=== PATIENT | female | born 1990 | race Caucasian/White ===

== ENCOUNTER 2020-10-23 09:34 | Inpatient (IN) | payer MEDICAID ==
[2020-10-23] VITALS (7 sets, daily range): BP systolic 111–144; BP diastolic 65–90
[~2020-10-23] VITALS: Ht 170.2 cm; Wt 124.0 kg
[2020-10-23] MEDS ORDERED: LACTATED RINGERS 1,000 ML IV ONE (19:18)
[2020-10-23] MEDS ORDERED: D5 LR IV SOLUTION 1,000 ML IV ONE (19:18)
[2020-10-23] MEDS ORDERED: MINERAL OIL CONCENTRATE 99.9% 15 ML UDC TOP PRN (19:30)
[2020-10-23] MEDS ORDERED: TERBUTALINE INJ 1 MG/ML (BRETHINE) AMP SC PRN (19:30)
[2020-10-23] MEDS ORDERED: LACTATED RINGERS 1,000 ML IV SCH (19:30)
[2020-10-23] MEDS ORDERED: PHYTONADIONE (VIT. K) NEONATAL 1 MG/0.5 ML AMP ONE (19:32)
[2020-10-23] MEDS ORDERED: ERYTHROMYCIN OPHTH OINT 1 GM (SINGLE USE) TUBE ONE (19:32)
[2020-10-23 20:14] LABS: BILIRUBIN,URINE NEGATIVE (NEGATIVE); CLARITY,URINE CLEAR; COLOR,URINE DARK YELLOW; GLUCOSE, URINE (UA) 2+ (NEGATIVE); KETONES,URINE TRACE (NEGATIVE); LEUKOCYTE ESTERASE ,URINE NEGATIVE (NEGATIVE); NITRITE,URINE NEGATIVE (NEGATIVE); PROTEIN,URINE 1+ (NEGATIVE)
[2020-10-23 20:18] LABS: BASOPHILS % (AUTO) 0 % (0-10); EOSINOPHILS # (AUTO) 0.1 10^3/uL (0.0-0.3); EOSINOPHILS % (AUTO) 1 % (0-10); HEMATOCRIT 39 % (35-52); HEMOGLOBIN 12.8 g/dL (11.5-16.0); LYMPHOCYTES # (AUTO) 2.8 10^3/uL (1.0-4.0); LYMPHOCYTES % (AUTO) 23 % (12-44); MEAN CORPUSCULAR HEMOGLOBIN 30 pg (25-34); MEAN CORPUSCULAR HGB CONC 33 g/dL (32-36); MEAN CORPUSCULAR VOLUME 89 fL (80-99); MEAN PLATELET VOLUME 10.8 fL (9.0-12.2); MONOCYTES # (AUTO) 0.9 10^3/uL (0.0-1.0); MONOCYTES % (AUTO) 7 % (0-12); NEUTROPHILS # (AUTO) 8.5 10^3/uL (1.8-7.8); NEUTROPHILS % (AUTO) 69 % (42-75); PLATELET COUNT 394 10^3/uL (130-400); WHITE BLOOD COUNT 12.4 10^3/uL (4.3-11.0)
[2020-10-23 20:26] LABS: CALCIUM OXALATE CRYSTALS,UR MODERATE /LPF
[2020-10-23 20:27] LABS: WBC,URINE 0-2 /HPF
[2020-10-23 20:28] LABS: AMORPHOUS SEDIMENT,UR RARE AMOR URATES /LPF; BACTERIA,URINE TRACE /HPF; SQUAMOUS EPITHELIAL CELL,UR 0-2 /HPF
[2020-10-23] MEDS: D5 LR IV SOLUTION 1,000 ML IV SCH (20:36)
[2020-10-23] MEDS ORDERED: PREN-142 PO (20:45)
[2020-10-23] MEDS: CATHETER FLUSH 10 ML SYR IV SCH (21:02)
[2020-10-24] VITALS (80 sets, daily range): BP systolic 92–147; BP diastolic 54–93
[2020-10-24] MEDS: D5 LR IV SOLUTION 1,000 ML IV SCH ×3 (04:32→20:14)
[2020-10-24] MEDS ORDERED: fentaNYL 2 mcg/ml BUPIVA 0.125 100 ML ONE (10:34)
[2020-10-24] MEDS ORDERED: LACTATED RINGERS 1,000 ML IV SCH ×2 (10:45→12:00)
[2020-10-24] MEDS ORDERED: fentaNYL INJ 100 MCG/2 ML AMP ONE (11:02)
[2020-10-24] MEDS ORDERED: LIDOCAINE PF 2% 5 ML (XYLOCAINE) VIAL ONE (12:00)
[2020-10-24] MEDS ORDERED: NALOXONE 0.4 MG/ML 1 ML (NARCAN) VIAL IV PRN (12:00)
[2020-10-24] MEDS ORDERED: diphenhydrAMINE 50 MG/ML INJ (BENADRYL) IV PRN (12:00)
[2020-10-24] MEDS ORDERED: EPIDURAL (fentaNYL 2 MCG/ML BUPIVA 0.125%)100 ML BAG EPI PRN (12:00)
[2020-10-24] MEDS ORDERED: BUPIVACAINE 0.25% 30 ML (SENSORCAINE) VIAL ONE (12:00)
[2020-10-24] MEDS: fentaNYL 2 mcg/ml BUPIVA 0.125 100 ML EPI PRN ×2 (12:03→20:19)
[2020-10-24] MEDS: ONDANSETRON 4 MG/2 ML (SDV) Z0FRAN IV PRN ×3 (12:10→21:18)
[2020-10-24] MEDS ORDERED: OXYTOCIN PRE-MIX DRIP 500 ML IV SCH (13:00)
[2020-10-24] MEDS: CATHETER FLUSH 10 ML SYR IV SCH ×2 (20:01→21:18)
[2020-10-25] VITALS (66 sets, daily range): BP systolic 94–152; BP diastolic 51–85
[2020-10-25] MEDS: D5 LR IV SOLUTION 1,000 ML IV SCH ×2 (04:10→12:06)
[2020-10-25] MEDS: fentaNYL 2 mcg/ml BUPIVA 0.125 100 ML EPI PRN ×2 (04:12→11:56)
--- NOTE | 2020-10-25 06:33 | History & Physical-OB ---
OB - Chief Complaint & HPI Date/Time Date of Admission: Date of Admission: Oct 23, 2020 at 18:56 Date seen by a Provider: Oct 24, 2020 Time Seen by a Provider: 17:30 Chief Complaint/History OB-Reason for Admission/Chief: Induction of Labor Hx : 1 Expected Date of Delivery: Oct 20, 2020 Gestational Age in Weeks: 40 Gestational Age in Days: 3 Indication for induction: post dates History of Labs B+, Ab neg Rub Imm HIV/HepB/C/RPR NR Normal 1 hr GTT GBS neg Allergies and Home Medications Allergies Coded Allergies: No Known Drug Allergies (Unverified , 10/23/20) Home Medications Vit No.124/Iron/FA 1 Each Tablet, 1 EACH PO DAILY, (Reported) Last Action: New Order Patient Home Medication List Home Medication List Reviewed: Yes OB - History Hx of Present Care: Yes Ultrasounds: Normal mid trimester US Obstetrical Complications: None Medical Complications: Other (Obesity) Obstetrical History Hx : 1 Patient Past Medical History NA Social History/Family History Alcohol Use: Denies Use Smoking Cessation: Never smoker Immunizations Tetanus Booster (TDap): Less than 5yrs Rubella: immune RPR/VDRL: Negative GBS Status: Negative HBsAG: Negative OB - Admission Exam Physical Exam Vitals: Vital Signs 10/25/20 10/25/20 10/25/20 03:15 05:15 06:00 Temp 36.3 Pulse 74 Resp 18 B/P (MAP) 138/77 (97) Pulse Ox 96 O2 Delivery Room Air HEENT: NCAT Heart: Rhythm Normal Lungs: Clear Abdomen: Gravid Cervical Dilatation: 5cm Effacement: 75% Station: -2 Membranes: Ruptured Amniotic Fluid: Clear Heart Rate: 140's Accelerations: Accelerations Present Decelerations: No Decelerations Short Term Variability: Present Care Home Variability: Average (6-25) Contractions on Admission: < 5 Minutes Apart Intensity: Firm Rene Scoring Tool (Modified) Dilation (cm): 1-2cm (1) Effacement (%): 51-79% (2) Descent/Station: -2 (1) Cervix Consistency: Medium(1) Cervix Position: Middle/Mid-Position (1) Rene Score: 6 OB - Assessment/Plan/Diagnosis Assessment Assessment: induction of labor Admission Dx Third Trimester 40 week gestation Obesity in Admission Status: Inpatient Order (span 2 midnights) Reason for Inpatient Admission: Labor Plan Plan: Induction Other Plan 30 yo G1 @ 40.3 here for IOL for post dates Plan - Cytotec given starting yesterday at 1900 - AROM this AM and started on Pitocin - Epidural ok when patient desires - GBS Neg YVES CASTAÑEDA MD Oct 25, 2020 06:33
[2020-10-25] MEDS: ONDANSETRON 4 MG/2 ML (SDV) Z0FRAN IV PRN (11:33)
[2020-10-25] MEDS ORDERED: OXYTOCIN PRE-MIX DRIP 1,000 ML IV ONE (13:28)
[2020-10-25] MEDS ORDERED: FAMOTIDINE 20MG/2ML IV (PEPCID) ONE (13:44)
[2020-10-25] MEDS ORDERED: CITRIC ACID/SOB CIT (BICITRA) 30 ML UDC ONE (13:44)
[2020-10-25] MEDS ORDERED: METOCLOPRAMIDE INJ 10 MG/2 ML (REGLAN) ONE (13:44)
[2020-10-25] MEDS ORDERED: CITRIC ACID/SOB CIT (BICITRA) 30 ML UDC PO ONE (14:00)
[2020-10-25] MEDS ORDERED: FAMOTIDINE 20MG/2ML IV (PEPCID) IV ONE (14:00)
[2020-10-25] MEDS ORDERED: LACTATED RINGERS 1,000 ML IV SCH ×2 (14:00)
[2020-10-25] MEDS ORDERED: METOCLOPRAMIDE INJ 10 MG/2 ML (REGLAN) IV ONE (14:00)
[2020-10-25] MEDS ORDERED: LACTATED RINGERS 1,000 ML IV PRN (14:00)
[2020-10-25] MEDS ORDERED: fentaNYL INJ 100 MCG/2 ML AMP ONE (14:19)
[2020-10-25] MEDS ORDERED: IBUP-1780 PO (14:20)
[2020-10-25] MEDS ORDERED: DOCU-143 PO (14:20)
[2020-10-25] MEDS ORDERED: OXYC1TAB12 PO (14:20)
--- NOTE | 2020-10-25 14:21 | Discharge Inst-Surgical ---
Discharge Inst-Surgical Depart Medication/Instructions New, Converted or Re-Newed RX: RX on Chart Consults/Follow Up Patient Instructions: As directed Orders & Referrals Follow Up Appt: RTC 1 week for incision check With Dr. Cannon Call to make follow up appt. for patient With Dr. Manzanares in 6 weeks For exam. Wound Care: Remove cindy, apply benzoin and steri strips. Activity Per routine post instructions. Please call in RX to patient pharmacy. Diet as tolerated Patient may shower or tub bathe as desired. Continue home meds Activity Activity as Tolerated: No Diet Discharge Diet: No Restrictions HERBIE CANNON MD Oct 25, 2020 14:21
[2020-10-25] MEDS ORDERED: ceFAZolin 2 GM IV Premixed 50 ML ONE (14:27)
[2020-10-25] MEDS ORDERED: metroNIDAZOLE 500MG/100ML IVPB 100 ML ONE (14:27)
[2020-10-25] MEDS ORDERED: MEASLES,MUMPS,RUBELLA 1 EA INJ SC ONE (14:30)
[2020-10-25] MEDS ORDERED: fentaNYL INJ 100 MCG/2 ML AMP IVP PRN (14:30)
[2020-10-25] MEDS ORDERED: TETANUS,DIPTH,PERTUSS P/F (BOOSTRIX) 0.5 ML VIAL IM ONE (14:30)
[2020-10-25] MEDS ORDERED: D5 LR IV SOLUTION 1,000 ML IV SCH (14:30)
[2020-10-25] MEDS ORDERED: ONDANSETRON 4 MG/2 ML (SDV) Z0FRAN IVP PRN (14:30)
[2020-10-25] MEDS ORDERED: PHENYLEPHRINE 100 MCG/ML 10 ML (ANESTHESIA) SYR ONE (14:36)
[2020-10-25] MEDS ORDERED: KETAMINE/NaCl 50 MG/5 ML SYRINGE (ED ONLY) ONE (14:36)
[2020-10-25] MEDS ORDERED: LIDOCAINE PF 2% 5 ML (XYLOCAINE) VIAL ONE ×2 (15:14)
[2020-10-25] MEDS ORDERED: BUPIVACAINE 0.5% 30 ML (SENSORCAINE) VIAL ONE (15:15)
[2020-10-25] MEDS: OXYTOCIN PRE-MIX DRIP 500 ML IV SCH ×2 (16:36→21:00)
[2020-10-25] MEDS: oxyCODONE/APAP 10/325MG (PERCOCET 10) TABLET PO PRN (18:42)
--- NOTE | 2020-10-25 19:47 | OPERATIVE REPORT ---
DATE OF SERVICE: 10/25/2020 PREOPERATIVE DIAGNOSES: Term in labor with failure to progress and failure to descend. POSTOPERATIVE DIAGNOSES: Term in labor with failure to progress and failure to descend with CPD/OP/macrosomia. OPERATIVE PROCEDURE: Primary low transverse delivery of a viable male with Apgars that are pending, weight of 10 pounds 10 ounces. Cord blood pH of 7.25. OPERATIVE DESCRIPTION: With the patient in the supine position under satisfactory epidural analgesia, the patient was prepped and draped in the usual fashion for abdominal surgery. Avila catheter was placed in the urinary bladder and left to dependent drainage. A Pfannenstiel incision was made through the skin with scalpel, the patient's abdomen was entered in the usual manner. Bladder retractor placed in position, clean scalpel used to make a 4 cm hysterotomy incision transversely across the lower uterine segment that was extended bluntly as well. The presenting part was descending into the pelvis, but not terribly engaged. It was elevated up out of the pelvis easily almost elevated spontaneously. Fundal pressure did very little to allow descent of the presenting part to the incision. Camp forceps were applied to facilitate delivery; however, that was not forthcoming. This did not seem quite right as the head would not come down to the incision with usual traction via the camp forceps. The forceps were removed and on palpation, the presenting part had retracted well up into the uterus. It was obvious, there was a nuchal cord or more. I palpated the upper abdomen, located the feet did an internal podalic version and a breech extraction. The head just barely cleared the incision to come out of the uterus with the double/triple nuchal cord that was now easily released. The was dried, stimulated as the umbilical cord was clamped and cut and the passed to the pediatric nurse in attendance for delivery. Cord bloods at this time were obtained. Placenta delivered spontaneously Driscoll. It was normal with a 3-vessel cord. The uterus was exteriorized and interior wiped clean with a wet laparotomy sponge. Uterine incision was then closed with a running locked suture of 2-0 Vicryl. Hemostasis was satisfactory; however, the uterus was quite boggy and atonic. A modified B-Cotto suture was placed using 2-0 chromic sutures in the usual manner. This compressed uterus nicely. The uterus was now returned to abdominal cavity. All blood clot and debris was removed from the abdominal cavity. Sponge and needle counts correct, hemostasis assured. The anterior parietal peritoneum was closed with running suture of 2-0 Vicryl. The rectus muscles were closed with that suture as well. The rectus fascia was closed with 2-0 Vicryl, subcutaneous tissue was closed with 2-0 Vicryl and the skin was stapled. Sponge and needle counts were correct on completion of the procedure. Estimated blood loss was around 800 mL. The patient tolerated the procedure well and was transferred to the recovery room in stable condition. The had been taken stable to the full term nursery under the care of the director semiconductor. Job ID: [id number] DocumentID: [id number] Dictated Date: 10/25/2020 15:23:52 Photographic Press Screwmaker Date: 10/25/2020 19:46:50 Dictated By: HERBIE HO MD MTDD
[2020-10-25] MEDS ORDERED: DOCUSATE SODIUM 100 MG (COLACE) CAP PO SCH (21:00)
[2020-10-25] MEDS: KETOROLAC 30 MG/ML VIAL IVP SCH (21:04)
[2020-10-25] MEDS: DOCUSATE SODIUM 100 MG (COLACE) CAP PO SCH (21:05)
[2020-10-26] MEDS: KETOROLAC 30 MG/ML VIAL IVP SCH ×2 (02:49→08:30)
[2020-10-26 04:25] VITALS: BP 103/52
[2020-10-26] MEDS: oxyCODONE/APAP 10/325MG (PERCOCET 10) TABLET PO PRN ×3 (06:34→22:10)
[2020-10-26 07:25] VITALS: BP 95/52
--- NOTE | 2020-10-26 08:28 | Anesthesia-Regional Post-Op ---
Regional Patient Condition Mental Status: Alert, Oriented x3 Circulation: Same as Pre-Op Headache: Absent Sensation: Full Recovery Motor Block: Absent Post Op Complications Complications None Follow Up Care/Instructions Patient Instructions None needed. Anesthesia/Patient Condition Patient is doing well, no complaints, stable vital signs, no apparent adverse anesthesia problems. No complications reported per nursing. JESUS ADAMS CRNA Oct 26, 2020 08:28
--- NOTE | 2020-10-26 08:52 | Progress Note ---
Standard Progress Note Progress Notes/Assess & Plan Date Seen by a Provider: Oct 26, 2020 Time Seen by a Provider: 08:50 Progress/Assessment & Plan This patient is without complaint. She is ambulating, voiding, tolerating oral intake well and has good pain control. Patient denies headache, denies shortness of breath, denies nausea vomiting, and denies chest pain. Vital signs are stable. Patient is afebrile. The abdomen is benign. The surgical incision is clean dry and intact. Extremities show no clubbing or cyanosis. There is no Homans' sign. Assessment and plan primary delivery doing well. Patient will have routine convalescent care. We did have a discussion of the events of the delivery. Particularly the difficulty with extracting the baby from the uterus with the short multiple nuchal cord. I described to the patient the internal podalic version and breech extraction HERBIE HO MD Oct 26, 2020 08:52
[2020-10-26] MEDS ORDERED: IBUPROFEN 800 MG (MOTRIN) TAB PO ONE ×2 (09:17→15:03)
[2020-10-26] MEDS: DOCUSATE SODIUM 100 MG (COLACE) CAP PO SCH ×2 (09:27→22:09)
[2020-10-26] MEDS: IBUPROFEN 800 MG (MOTRIN) TAB PO SCH ×3 (09:27→22:10)
[2020-10-26 12:25] VITALS: BP 114/53
[2020-10-26] MEDS ORDERED: IBUPROFEN 800 MG (MOTRIN) TAB PO SCH (14:00)
[2020-10-26 16:15] VITALS: BP 115/58
[2020-10-26 22:10] VITALS: BP 114/58
[2020-10-27 03:19] VITALS: BP 101/51
[2020-10-27] MEDS: oxyCODONE/APAP 10/325MG (PERCOCET 10) TABLET PO PRN ×2 (03:20→13:19)
[2020-10-27] MEDS: IBUPROFEN 800 MG (MOTRIN) TAB PO SCH ×2 (03:20→10:36)
--- NOTE | 2020-10-27 08:05 | Postpartum Progress Note ---
Note Note Day # 2 Subjective: Patient is without complaints. Ambulating, voiding. Tolerating a regular diet without nausea or vomiting. Normal lochia. Pain is well controlled with oral pain medications. Objective: Physical Exam: General - Alert and oriented, no apparent distress Abdomen - Soft, appropriately tender to palpation, non-distended, fundus firm at umbilicus Extremities - no edema, negative Angelito's bilaterally Incision- c/d/i cindy in place Assessment: POD 2 PLTCS Acute blood loss anemia Plan: Routine care. Encourage breast feeding. Encourage ambulation. Ferrous sulfate supplementation. Plan for discharge today Vitals - Labs Vital Signs - I&O Vital Signs Date Time Temp Pulse Resp B/P (MAP) Pulse Ox O2 Delivery O2 Flow Rate FiO2 10/27/20 03:19 36.8 101 16 101/51 (68) 94 Room Air 10/26/20 22:10 36.8 129 16 114/58 (76) 96 Room Air 10/26/20 16:15 36.7 113 16 115/58 (77) 96 Room Air 10/26/20 12:25 36.3 109 16 114/53 (73) 95 Room Air JESSICA SMITH DO Oct 27, 2020 08:05
[2020-10-27 08:15] VITALS: BP 98/52
[2020-10-27] MEDS: DOCUSATE SODIUM 100 MG (COLACE) CAP PO SCH (10:37)
[2020-10-27 13:30] VITALS: BP 119/55
== END 2020-10-27 17:08 | disposition home or self-care (01) | DRG 787 ==
LOC: LDRP 18:56
PROVIDERS: ADMIT Family Medicine; ATTEND Family Medicine
PROC: 10D00Z1 Extraction of Products of Conception, Low, Open Approach (ICD-10-PCS; principal; 2020-10-25 14:35)
DX: O48.0 Post-term pregnancy (principal); D62 Acute posthemorrhagic anemia; Z37.0 Single live birth; Z3A.40 40 weeks gestation of pregnancy; O99.214 Obesity complicating childbirth; E66.9 Obesity, unspecified; O69.81X0 Labor and delivery complicated by cord around neck, without compression, not applicable or unspecified; O90.81 Anemia of the puerperium; O62.0 Primary inadequate contractions; O33.9 Maternal care for disproportion, unspecified; O36.63X0 Maternal care for excessive fetal growth, third trimester, not applicable or unspecified
CPT/HCPCS: 36415; 81000; 85025; 86780; 86850; 86900; 86901

== ENCOUNTER 2020-12-01 12:17 | Day surgery (SDC) | payer MEDICAID ==
[2020-12-01] VITALS (9 sets, daily range): BP systolic 108–133; BP diastolic 59–85
[~2020-12-01] VITALS: Ht 176.8 cm; Wt 106.6 kg
[~2020-12-01 12:17] MED LIST: DOCU-143 PO; IBUP-1780 PO; OXYC1TAB12 PO; PREN-142 PO
[2020-12-01] MEDS ORDERED: fentaNYL INJ 100 MCG/2 ML AMP IVP ONE ×2 (12:30→16:30)
[2020-12-01] MEDS ORDERED: LACTATED RINGERS 1,000 ML IV PRN (12:30)
[2020-12-01] MEDS ORDERED: PIPERACILLIN/TAZO 4.5 GM/NS 100 ML IV ONE ×4 (13:00→13:15)
[2020-12-01 13:24] LABS: BASOPHILS % (AUTO) 0 % (0-10); EOSINOPHILS # (AUTO) 0.1 10^3/uL (0.0-0.3); EOSINOPHILS % (AUTO) 1 % (0-10); HEMATOCRIT 31 % (35-52); HEMOGLOBIN 9.5 g/dL (11.5-16.0); LYMPHOCYTES # (AUTO) 1.9 10^3/uL (1.0-4.0); LYMPHOCYTES % (AUTO) 21 % (12-44); MEAN CORPUSCULAR HEMOGLOBIN 27 pg (25-34); MEAN CORPUSCULAR HGB CONC 31 g/dL (32-36); MEAN CORPUSCULAR VOLUME 87 fL (80-99); MEAN PLATELET VOLUME 8.7 fL (9.0-12.2); MONOCYTES # (AUTO) 0.4 10^3/uL (0.0-1.0); MONOCYTES % (AUTO) 5 % (0-12); NEUTROPHILS # (AUTO) 6.6 10^3/uL (1.8-7.8); NEUTROPHILS % (AUTO) 72 % (42-75); PLATELET COUNT 596 10^3/uL (130-400); WHITE BLOOD COUNT 9.1 10^3/uL (4.3-11.0)
[2020-12-01] MEDS ORDERED: proPOfol 200 MG/20 ML (DIPRIVAN) VIAL IV ONE (14:53)
[2020-12-01] MEDS ORDERED: SUCCINYLCHOLINE INJ 100 MG/5 ML SYR/VIAL ONE (14:53)
[2020-12-01] MEDS ORDERED: fentaNYL INJ 100 MCG/2 ML AMP ONE ×3 (14:53→16:58)
[2020-12-01] MEDS ORDERED: LIDOCAINE PF 2% 5 ML (XYLOCAINE) VIAL ONE (14:53)
[2020-12-01] MEDS ORDERED: ONDANSETRON 4 MG/2 ML (SDV) Z0FRAN ONE (14:53)
[2020-12-01] MEDS ORDERED: MIDAZOLAM 2 MG/2 ML (VERSED) VIAL ONE (14:54)
[2020-12-01] MEDS ORDERED: SEVOFLURANE (ULTANE) 15 ML INHAL SOLN ONE ×6 (14:55→17:40)
[2020-12-01] MEDS ORDERED: PROMETHAZINE INJ 25 MG/ML (PHENERGAN) AMP ONE (16:18)
[2020-12-01] MEDS ORDERED: MEPERIDINE (DEMEROL) INJ 50 MG/ML ONE (16:18)
[2020-12-01] MEDS ORDERED: morphine INJ 10 MG/ML 1ML (SYR OR VIAL) ONE (16:18)
--- NOTE | 2020-12-01 16:22 | Progress Note-Pre Operative ---
Pre-Operative Progress Note H&P Reviewed The H&P was reviewed, patient examined and no changes noted. Date Seen by Provider: Dec 01, 2020 Time Seen by Provider: 16:22 Date H&P Reviewed: Dec 01, 2020 Time H&P Reviewed: 16:22 Pre-Operative Diagnosis: Abdominal wall cellulitis HERBIE HO MD Dec 01, 2020 16:22
--- NOTE | 2020-12-01 16:23 | Progress Note-Post Operative ---
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
[2020-12-01] MEDS ORDERED: IBUP-1780 PO (16:28)
[2020-12-01] MEDS ORDERED: DOCU-143 PO (16:28)
[2020-12-01] MEDS ORDERED: OXYC1TAB12 PO (16:28)
--- NOTE | 2020-12-01 16:29 | Discharge Inst-Surgical ---
Discharge Inst-Surgical Depart Medication/Instructions New, Converted or Re-Newed RX: RX on Chart Consults/Follow Up Patient Instructions: As directed Orders & Referrals Follow Up Appt: Return to clinic next Friday, December 08, 2020 at 9:30 AM for incision check Activity: Rest for 24 hours, than as tolerated. Wound Care: May remove Band-Aid tomorrow. Replace as desired. Keep incisions clean and dry. Wash daily with soap and water. Please call in RX to patient pharmacy. Diet: As tolerated-Clear Liquids only if nauseated. Tomorrow, may shower or tub bathe as desired. No driving for 24 hours, no alcoholic beverages for 24 hours, and nothing per vagina (no tampons, douching, or intercoarse) for 2 weeks. Patient to return to the clinic as soon as possible for: Temperature greater than 101F, Severe Pain, Foul discharge from incision or vagina, Excessive Bleeding (more than a period). Activity Activity as Tolerated: No Diet Discharge Diet: No Restrictions HERBIE HO MD Dec 01, 2020 16:29
[2020-12-01] MEDS ORDERED: HYDROmorphone 2 MG/ML VIAL (DILAUDID) IV ONE (16:30)
[2020-12-01] MEDS ORDERED: D5 LR IV SOLUTION 1,000 ML IV SCH (16:30)
[2020-12-01] MEDS ORDERED: oxyCODONE/APAP 10/325MG (PERCOCET 10) TABLET PO PRN (16:30)
[2020-12-01] MEDS ORDERED: morphine INJ 10 MG/ML 1ML (SYR OR VIAL) IVP ONE (16:30)
[2020-12-01] MEDS ORDERED: PROMETHAZINE INJ 25 MG/ML (PHENERGAN) AMP IVP ONE (16:30)
[2020-12-01] MEDS ORDERED: fentaNYL INJ 100 MCG/2 ML AMP IVP PRN (16:30)
[2020-12-01] MEDS ORDERED: ONDANSETRON 4 MG/2 ML (SDV) Z0FRAN IVP PRN ×2 (16:30)
[2020-12-01] MEDS ORDERED: MEPERIDINE (DEMEROL) INJ 50 MG/ML IVP ONE (16:30)
--- NOTE | 2020-12-01 17:52 | Discharge Inst-Surgical ---
Discharge Inst-Surgical Consults/Follow Up Patient Instructions: Patient had previously been prescribed Keflex 500 mg 4 times daily she is to continue that antibiotic until follow-up in clinic HERBIE HO MD Dec 01, 2020 17:52
[2020-12-01] MEDS ORDERED: CEPH500T PO (17:54)
[2020-12-01] MEDS ORDERED: IBUPROFEN 800 MG (MOTRIN) TAB PO SCH (18:00)
[2020-12-01] MEDS ORDERED: KETOROLAC 30 MG/ML VIAL ONE (18:08)
--- NOTE | 2020-12-01 18:11 | Anesthesia-General Post-Op ---
General Patient Condition Mental Status/LOC: Same as Preop Cardiovascular: Satisfactory Nausea/Vomiting: Absent Respiratory: Satisfactory Pain: Controlled Complications: Absent Post Op Complications Complications None Follow Up Care/Instructions Patient Instructions None needed. Anesthesia/Patient Condition Patient Condition Patient is doing well, no complaints, stable vital signs, no apparent adverse anesthesia problems. No complications reported per nursing. ONIEL SHULTZ CRNA Dec 01, 2020 18:11
[2020-12-01] MEDS: KETOROLAC 30 MG/ML VIAL IVP SCH ×2 (18:17→23:59)
[2020-12-01] MEDS ORDERED: D5 LR IV SOLUTION 1,000 ML IV ONE (19:15)
[2020-12-01] MEDS ORDERED: DOCUSATE SODIUM 100 MG (COLACE) CAP PO SCH ×2 (21:00)
[2020-12-01] MEDS: PIPERACILLIN/TAZOBACTAM (BULK) 4.5 GM in NS (IVPB) 100 ML IV SCH (21:32)
--- NOTE | 2020-12-02 00:20 | OPERATIVE REPORT ---
DATE OF SERVICE: 12/01/2020 PREOPERATIVE DIAGNOSIS: Abdominal wall cellulitis. POSTOPERATIVE DIAGNOSES: Sterile necrosis of the abdominal wall. OPERATIVE DESCRIPTION: With the patient in the supine position under satisfactory general anesthesia, she was prepped and draped in the usual fashion for abdominal surgery. The patient had had a Pfannenstiel incision performed 5 weeks ago for her . The incision was well healed; however, it was edematous and discolored almost cyanotic appearing more so on the left than the right. It was swollen more on the left than on the right. The wound was opened bluntly. The subcutaneous tissue appeared necrotic. There was no purulent drainage. There was no abscess fluid or pocket. There was no odor to the tissue. The wound was opened to its full extent. The subcutaneous tissue was debrided back to healthy normal appearing viable tissue, which required removal of a couple of centimeters of tissue from both the superior and inferior wound edge, more tissue in the left extent of the wound than on the right. The dissection was carried down to the fascia, which did not seem to be involved. With the nonviable necrotic-appearing tissue removed, the skin edges themselves were resected back about 1 cm on both the superior and inferior margin and that tissue was sent to pathology for permanent section. The debridement tissue was sent to pathology for permanent section as well. The wound was copiously irrigated, treated sparingly with electrocautery for hemostasis, then a Kevon-Espinal drain was placed with exit superior to the round and several centimeters lateral in the right lower quadrant. A Kevon-Espinal bulb was applied. The wound was closed with reapproximation with PDS sutures loosely placed with 5 sutures along the extent of the incision and then retention sutures placed in three locations across the wound as well. An ABD pad was placed over the wound and light dressing was applied. Sponge and needle counts were correct on completion of the procedure. Blood loss was around 200 mL. The patient tolerated the procedure well and was uneventfully awakened from her general anesthesia and transferred to recovery room in stable condition with plans for 23-hour observation. Job ID: [id number] DocumentID: [id number] Dictated Date: 12/01/2020 17:49:35 Cutter And Presser Date: 12/02/2020 00:20:26 Dictated By: HERBIE HO MD
[2020-12-02] MEDS: PIPERACILLIN/TAZOBACTAM (BULK) 4.5 GM in NS (IVPB) 100 ML IV SCH (05:17)
[2020-12-02] MEDS: KETOROLAC 30 MG/ML VIAL IVP SCH (05:17)
[2020-12-02 05:20] VITALS: BP 109/55
[2020-12-02 07:55] VITALS: BP 108/55
[2020-12-02] MEDS ORDERED: OXYC1TAB12 PO (10:24)
[2020-12-02 11:55] LABS: BASOPHILS % (AUTO) 0 % (0-10); EOSINOPHILS # (AUTO) 0.2 10^3/uL (0.0-0.3); EOSINOPHILS % (AUTO) 2 % (0-10); HEMATOCRIT 30 % (35-52); HEMOGLOBIN 9.3 g/dL (11.5-16.0); LYMPHOCYTES % (AUTO) 22 % (12-44); MEAN CORPUSCULAR HEMOGLOBIN 27 pg (25-34); MEAN CORPUSCULAR HGB CONC 31 g/dL (32-36); MEAN CORPUSCULAR VOLUME 87 fL (80-99); MEAN PLATELET VOLUME 9.1 fL (9.0-12.2); MONOCYTES # (AUTO) 0.2 10^3/uL (0.0-1.0); MONOCYTES % (AUTO) 3 % (0-12); NEUTROPHILS # (AUTO) 6.6 10^3/uL (1.8-7.8); NEUTROPHILS % (AUTO) 73 % (42-75); PLATELET COUNT 629 10^3/uL (130-400); WHITE BLOOD COUNT 9.1 10^3/uL (4.3-11.0)
== END 2020-12-02 14:05 | disposition home or self-care (01) ==
LOC: SDC 12:17 → WS 12-02 07:41 → SDC 12-02 14:05
PROVIDERS: ATTEND Obstetrics & Gynecology
DX: I96 Gangrene, not elsewhere classified (principal); L03.311 Cellulitis of abdominal wall; K21.9 Gastro-esophageal reflux disease without esophagitis; E66.01 Morbid (severe) obesity due to excess calories; Z68.34 Body mass index [BMI] 34.0-34.9, adult; Z79.891 Long term (current) use of opiate analgesic; Z79.899 Other long term (current) drug therapy
CPT/HCPCS: 36415; 84703; 85025; 87070; 87075; 87077; 87081; 87101; 87186; 87205; 88304

== ENCOUNTER 2021-07-01 14:35 | Emergency (ER) | payer MEDICAID ==
[~2021-07-01] VITALS: Ht 170 cm; Wt 108.0 kg
[~2021-07-01 14:35] MED LIST changes: +CEPH500T PO
--- OUTSIDE RECORDS SUMMARY | 2021-07-01 14:38 | XMS REPORT | Clinical Summary ---
Demographics Home Phone Preferred Language Arabic Marital Status Single Yarsani Affiliation [id number] Race White Ethnic Group Not or Author Author [facility] ity Organization [facility] ity Address Unknown Phone Unavailable Care Team Providers Care Implementation Engineer Name Role Phone PP Unavailable Allergies Not on File Medications Not on file Active Problems Not on file Social History Date Tobacco Use Types Packs/Day Years Used Current Some Day Smoker Comments Alcohol Use Standard Drinks/Week Alcoholic Drinks/day: sometimes on weeke nds Yes 0 (1 standard drink = 0.6 o z pure alcohol) Sex Assigned at Date Recorded Not on file Plan of Treatment Not on file Results Not on filefrom Last 3 Months
--- OUTSIDE RECORDS SUMMARY | 2021-07-01 14:38 | XMS REPORT | Clinical Summary ---
Author Author [facility] Health Organization [facility] Health Address Unknown Phone Unavailable Care Team Providers Care Architecture Internship Name Role Phone None, Pcp MD PCP Unavailable Source Comments [facility] (Labor and Delivery) documents do not appear in the Encounter [facility] Allergies No known active allergies Medications * Please verify current medications with patient. End Date Status Medication Sig Dispensed Refills Start Date Active citalopram (CELEXA) 20 mg 0 tablet Active HYDROcodone-acetaminophen 1-2 by mouth 20 tablet 0 , 5-325 mg/tab, (NORCO) every 4-6 3 5-325 mg per tablet hours when necessary for pain Active diclofenac sodium Take 1 tablet 30 tablet 0 (VOLTAREN) 75 mg delayed by mouth two 3 release tablet times a day. Active Problems No known active problems Family History Relation Status Comments Brother Alive Father Alive Maternal Grandfather Alive Maternal Grandmother Alive Mother Alive Paternal Grandfather Paternal Grandmother Sister Alive Social History Date Tobacco Use Types Packs/Day Years Used Current Some Day Smoker Comments Alcohol Use Standard Drinks/Week sometimes on weekends Yes 0 (1 standard drink = 0.6 o z pure alcohol) Alcohol Habits Answer Date Recorded How often do you have a drink containing alcohol? No t asked How many drinks containing alcohol do you have on No t asked a typical day when you are drinking? How often do you have six or more drinks on one Not asked occasion? Comment: sometimes on weekends 06/06/2015 Sex Assigned at Date Recorded Not on file Last Filed Vital Signs Reading Time Taken Comments Vital Sign 101/51 03/20/2013 1:45 PM CDT Blood Pressure 66 03/20/2013 10:20 AM CDT Pulse 36.8 C (98.2 F) 03/20/2013 7:48 AM CDT Temperature 16 03/20/2013 10:20 AM CDT Respiratory Rate 96% 03/20/2013 1:45 PM CDT Oxygen Saturation - - Inhaled Oxygen Concentration 78.5 kg (173 lb) 03/20/2013 7:48 AM CDT Weight 170.2 cm (5' 7") 03/20/2013 7:48 AM CDT Height 27.1 03/20/2013 7:48 AM CDT Body Mass Index Plan of Treatment Health Maintenance Due Date Last Done Comments HPV/Cotest 1992 COVID-19 Vaccine (1) 02/13/1997 Cervical Cancer Screening 04/25/2017 Pap Smear 04/25/2017 04/25/2014 Influenza Vaccine (#1) 2021 HPV Vaccine Aged Out No longer eligible based on patient's age to complete this topic Hepatitis A Vaccine Aged Out No longer eligible based on patient's age to complete this topic Hepatitis B Vaccine Aged Out No longer eligible based on patient's age to complete this topic Hib Vaccine Aged Out No longer eligible based on patient's age to complete this topic IPV Vaccine Aged Out No longer eligible based on patient's age to complete this topic Meningococcal Vaccine Aged Out No longer eligib le based on patient's age to (MCV4) complete this topic Pneumococcal Vaccine: Aged Out No longer eligib le based on patient's age to Pediatrics (0 to 5 Years) complete this topic and At-Risk Patients (6 to 64 Years) Rotavirus Vaccine Aged Out No longer eligible based on patient's age to complete this topic Results Not on filefrom Last 3 Months Care Teams Start Date End Date Architecture Internship Relationship Specialty 03/20/13 None, Pcp, MD PCP - General Other or Unknown Specialty
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
--- OUTSIDE RECORDS SUMMARY | 2021-07-01 14:38 | XMS REPORT | Clinical Summary ---
Demographics Home Phone Preferred Language Unknown Marital Status Unknown [employer] Affiliation Unknown Race Unknown Ethnic Group Unknown Author Author [facility] Address Unknown Phone Unavailable Care Team Providers Care Transmission Tester Name Role Phone PCP Unavailable Allergies Not on File Medications Not on file Active Problems Not on file Social History Date Tobacco Use Types Packs/Day Years Used Never Assessed Sex Assigned at Date Recorded Not on file Last Filed Vital Signs Reading Time Taken Comments Vital Sign 112/66 10/06/2014 12:01 AM CDT Blood Pressure - - Pulse - - Temperature - - Respiratory Rate - - Oxygen Saturation - - Inhaled Oxygen Concentration 85.3 kg (188 lb) 10/06/2014 12:01 AM CDT Weight 174.5 cm (5' 8.7") 10/06/2014 12:01 AM CDT Height 28.01 10/06/2014 12:01 AM CDT Body Mass Index Plan of Treatment Health Maintenance Due Date Last Done Comments Varicella Vaccines (1 of 02/13/1993 2 - 2-dose childhood series) COVID-19 Vaccine (1) 02/13/1997 Hepatitis C Screening 02/13/2010 DTaP,Tdap,and Td Vaccines 02/13/2011 (1 - Tdap) MMR Vaccines-Adult 02/13/2011 Cervical Cancer Screening 02/13/2013 Influenza Vaccine (#1) 2021 Pneumo-Vaccine: 65+Yrs (1 02/13/2057 of 1 - PPSV23) HIB Vaccines Aged Out No longer eligible based on patient's age to complete this topic IPV Vaccines Aged Out No longer eligible based on patient's age to complete this topic Meningococcal Vaccine Aged Out No longer eligib le based on patient's age to complete this topic Pneumo-Vaccine: Peds (0-5 Aged Out No longer el igible based on patient's age to Yrs) & At-Risk Patients complete this topic (6-64 Yrs) Rotavirus Vaccines Aged Out No longer eligible based on patient's age to complete this topic Results Not on filefrom Last 3 Months
[2021-07-01 14:45] VITALS: BP 137/93
--- NOTE | 2021-07-01 16:27 | ED Cough/URI ---
General Chief Complaint: COVID19 Suspect/Confirmed Stated Complaint: COUGH,SORE THROAT,EVERETT,BODY ACHES Nursing Triage Note: ARRIVED VIA AMB TO ROOM 06 WITH COMPLAINTS OF SORETHORT, RUNNY NOSE, AND COUGH SINCE Fri. History of Present Illness Date Seen by Provider: Jul 01, 2021 Time Seen by Provider: 14:55 Initial Comments 31-year-old female presents for cough congestion and sore throat that have been present for 5 days. She denies any fevers. She has not been taking any medic ations for her symptoms. She has received her vaccination for Covid, she has not gotten a booster. Timing/Duration: intermittent Severity/Quality: no cough, dry cough Prior Episodes/Possible Cause: no prior episodes Associated Symptoms: cough, nasal congestion, sore throat Allergies and Home Medications Allergies Coded Allergies: No Known Drug Allergies (Unverified , 10/23/20) Patient Home Medication List Home Medication List Reviewed: Yes Cephalexin (Cephalexin) 500 Mg Tablet, 500 MG PO QID Prescribed by: HERBIE HINSON on 12/01/20 1754 Docusate Sodium (Colace) 100 Mg Capsule, 100 MG PO BID Prescribed by: HERBIE HINSON on 12/01/20 1628 Ibuprofen (Ibuprofen) 800 Mg Tablet, 800 MG PO Q6H PRN for PAIN Prescribed by: HERBIE HINSON on 12/01/20 1628 Oxycodone HCl/Acetaminophen (Percocet 10-325 mg Tablet) 1 Each Tablet, 1 TAB PO Q8H PRN for PAIN-MODERATE Prescribed by: DUTCH MORALES on 12/02/20 1024 Vit No.124/Iron/FA ( Vitamin Tablet) 1 Each Tablet, 1 EACH PO DAILY, (Reported) Entered as Reported by: GARRETT JAMESON on 10/23/202044 Review of Systems Review of Systems Constitutional: no symptoms reported, see HPI; No fever; malaise, weakness EENTM: see HPI, nose congestion, throat pain Respiratory: see HPI, cough Cardiovascular: no symptoms reported, see HPI Gastrointestinal: no symptoms reported, see HPI All Other Systems Reviewed Negative Unless Noted: Yes Past [id number]-Mmasej Hx Patient Social History Tobacco Use?: No Substance use?: No Alcohol Use?: No Immunizations Up To Date Tetanus Booster (TDap): Less than 5yrs Second COVID19 Vaccination Dustin: 03/20 COVID19 Vaccine Tip Cementer: MARINA Seasonal Allergies Seasonal Allergies: Yes (MUCINEX D OR DINH IF BAD OTC) Past Medical History Surgeries: Yes Section Respiratory: No Currently Using CPAP: No Currently Using BIPAP: No Cardiac: No Neurological: No Gastrointestinal: No Musculoskeletal: No Endocrine: No HEENT: No Cancer: No Psychosocial: No Integumentary: No Blood Disorders: No Family Medical History Reviewed Nursing Family Hx Physical Exam Vital Signs - First Documented 07/01/21 14:45 Temp 36.7 Pulse 92 Resp 16 B/P (MAP) 137/93 (108) Pulse Ox 96 O2 Delivery Room Air Capillary Refill : Less Than 3 Seconds Height: '" Weight: lbs. oz. kg; 37.00 BMI Method: General Appearance: WD/WN, no apparent distress HEENT: PERRL/EOMI, normal ENT inspection, TMs normal, pharynx normal; No pharyngeal erythema, No tonsillar exudate Neck: non-tender, full range of motion, supple, normal inspection Respiratory: chest non-tender, lungs clear, normal breath sounds, no respiratory distress Cardiovascular: normal peripheral pulses, regular rate, rhythm Gastrointestinal: normal bowel sounds, non tender, soft Extremities: normal range of motion, non-tender, normal inspection, no pedal edema, normal capillary refill Neurologic/Psychiatric: no motor/sensory deficits, alert, normal mood/affect, oriented x 3 Skin: normal color, warm/dry Progress/Results/Core Measures Suspected Sepsis SIRS Temperature: Pulse: 92 Respiratory Rate: 16 Blood Pressure 137 /93 Mean: 108 Results/Orders Lab Results Laboratory Tests Test 07/01/21 15:02 07/01/21 15:03 Range/Units Influenza Type A Antigen NEGATIVE NEGATIVE Influenza Type B Antigen NEGATIVE NEGATIVE SARS-CoV-2 RNA (RT-PCR) Negative Negative My Orders Orders - LEONID DESAI Covid 19 Inhouse Test (07/01/21 15:03) Influenza A & B Antigens (07/01/21 15:03) Coronavirus Sars-Cov-2 So 2019 (07/01/21 15:03) Vital Signs/I&O 07/01/21 14:45 Temp 36.7 Pulse 92 Resp 16 B/P (MAP) 137/93 (108) Pulse Ox 96 O2 Delivery Room Air Capillary Refill : Less Than 3 Seconds Blood Pressure Mean: 108 Departure Impression Primary Impression: Upper respiratory infection Qualified Codes: J06.9 - Acute upper respiratory infection, unspecified Disposition: 01 HOME, SELF-CARE Condition: Improved Departure-Patient Inst. Decision time for Depature: 16:10 Referrals: YVES CASTAÑEDA MD (PCP/Family) Primary Care Physician Patient Instructions: Viral Upper Respiratory Infection, Adult (DC) Add. Discharge Instructions: Use [id number] DayQuil and NyQuil for symptoms. You may alternate between Tylenol 650 mg and ibuprofen 600 mg every 4 hours for fever or discomfort. Your initial Covid test was negative, however we will be doing a send out Covid test for confirmation. The results should be back in 48 to 72 hours. You should stay home and quarantine, until these results are called to you. call your primary care provider for additional symptoms as needed. Return to the emergency department for new, urgent healthcare needs. All discharge instructions reviewed with patient and/or family. Voiced understanding. LEONID DESAI Jul 01, 2021 16:27
== END 2021-07-01 16:46 | disposition home or self-care (01) ==
LOC: ER 14:35
DX: J06.9 Acute upper respiratory infection, unspecified (principal); Z20.822 Contact with and (suspected) exposure to COVID-19
CPT/HCPCS: 87635; 87636; 87804; 99283